=== PATIENT | female | born 1985 | race Caucasian/White ===

== ENCOUNTER 2017-05-10 07:28 | Emergency (ER) | payer BC ==
[2017-05-10] MEDS ORDERED: cefTRIAXone VIAL(*) 1,000 MG VIAL IM ONE (09:18)
[2017-05-10] MEDS ORDERED: Lidocaine 1%* 5 ML VIAL INJ ONE (09:35)
[2017-05-10] MEDS ORDERED: Lidocaine 1% MPF* 2 ML VIAL ONE (09:53)
[2017-05-10 10:25] VITALS: BP 113/65
--- NOTE | 2017-05-10 10:36 | RAD ---
Indication: Bit by dog at level of LEFT second metacarpal phalangeal joint. Small laceration and associated swelling. Comparison: No relevant prior exams available on the [facility] [place] [facility] for comparison. Technique: 3 views LEFT second finger. REPORT AND IMPRESSION: Mild soft tissue swelling most prominent over the dorsal aspect at the level of the metacarpal phalangeal joint. No subcutaneous emphysema, conspicuous foreign body, fracture, or malalignment.
[2017-05-10] MEDS ORDERED: Tetan/Diph/Pertus SYR(Tdap)* 0.5 ML SYR(BOOSTRIX) use SYR IM ONE (10:46)
--- NOTE | 2017-06-09 23:13 | UC ---
Felipe Vyas Aidan, scribed for Katrina Hodges DO on 05/10/17 at 0919 . Skin Complaint HPI - HPI Summary HPI Summary: 32 y/o female presents to the Urgent Care with a complaint acute, constant, mild -to-moderate left hand pain that resulted from her being bitten by her dog at 1900 last night. Her pain at baseline is 1-2/10, however, bending or applying pressure to the joint of the hand aggravates the pain to an 8-9/10. The pain is worst over the joint of the left index finger. Associated symptoms include a small puncture wound on the left hand, nausea and some swelling. She denies any other related symptoms. Pt is 14 weeks . This is her second . Hx of miscarriage. - History of Current Complaint Chief Complaint: UCSkin Time Seen by Provider: 05/10/17 07:57 Stated Complaint: DOG BITE Hx Obtained From: Patient Hx Last Menstrual Period: 08/05/16 ?: Yes Onset/Duration: Sudden Onset, Lasting Hours, Still Present Skin Exposure Onset/Duration: Hours Ago Timing: Constant Onset Severity: Moderate Current Severity: Moderate Pain Intensity: 2 - pain can be aggravated to 8/10 Pain Scale Used: 0-10 Numeric Location: Discrete - at left hand Aggravating: Other - bending the left hand, applying pressure to the joint of the left index finger. Alleviating: Other - unknown Associated Signs & Symptoms: Positive: Nausea, Joint Swelling. Negative: Negative - small puncture wound, left hand Related History: Possible Reaction to: Animal - animal bite - Allergy/Home Medications Allergies/Adverse Reactions: Allergies Allergy/AdvReac Type Severity Reaction Status Date / Time Penicillins Allergy Intermediate Rash Verified 11/16/16 09:40 Review of Systems Constitutional: Negative Skin: Other - puncture wound, left hand swelling Eyes: Negative ENT: Negative Respiratory: Negative Cardiovascular: Negative Gastrointestinal: Other - nausea Genitourinary: Negative Motor: Negative Neurovascular: Negative Musculoskeletal: Arthralgia - left hand pain Neurological: Negative Psychological: Negative All Other Systems Reviewed And Are Negative: Yes PMH/Surg Hx/FS Hx/Imm Hx - Surgical History Surgical History: Yes Surgery Procedure, Year, and Place: Left ACL repair - 2000. Right ACL repair, meniscus removal/repair - 2005. scope on left knee. right knee . exploratory scope of acl - Family History Known Family History: Positive: Hypertension - Social History Occupation: Employed Full-time Lives: With Family Alcohol Use: None Substance Use Type: None Smoking Status (MU): Never Smoked Tobacco Physical Exam Triage Information Reviewed: Yes Appearance: Well-Appearing, No Pain Distress, Well-Nourished Vital Signs: Initial Vital Signs Temp 97.8 F 05/10/17 07:30 Pulse 93 05/10/17 07:30 Resp 17 05/10/17 07:30 BP 117/84 05/10/17 07:30 Pulse Ox 100 05/10/17 07:30 Vital Signs Reviewed: Yes Eyes: Positive: Conjunctiva Clear. Negative: Discharge ENT: Positive: Hearing grossly normal. Negative: Muffled/hoarse voice Neck exam: Normal Neck: Positive: Supple Respiratory: Positive: Lungs clear, Normal breath sounds, No respiratory distress, No accessory muscle use Cardiovascular: Positive: RRR, No Murmur Musculoskeletal Exam: Normal Neurological: Positive: Alert, Muscle Tone Normal Psychological Exam: Normal Psychological: Positive: Age Appropriate Behavior Skin Exam: Other - warm, dry, normal color, Puncture wound over the dorsal aspect of the first metacarpal Diagnostics - Radiology FINGER X-RAY Xray Interpretation: No Acute Changes - IMPRESSION: Mild soft tissue swelling most prominent over the dorsal aspect at the level of the metacarpal phalangeal joint. No subcutaneous emphysema, conspicuous foreign body, fracture, or malalignment. Radiology Interpretation Completed By: Radiologist Course/Dx - Course Course Of Treatment: 32 y/o female presents with a puncture would to the left hand that resulted from a dog bite last night. There is associated swelling and pain that is aggravated by bending the index finger joint and by applying pressure to the puctured area. - Differential Diagnoses - Skin Complaint Differential Diagnoses: Abscess, Cellulitis - Diagnoses Provider Diagnoses: animal bite, wound infection Discharge - Discharge Plan Condition: Stable Disposition: HOME Prescriptions: Cephalexin CAP* [Keflex CAP*] 500 mg PO BID #20 cap Metronidazole [Flagyl 500 MG TAB] 500 mg PO TID #21 tab Patient Education Materials: Animal Bite (ED), Wound Infection (ED) Referrals: Iliana Valerio DO [Primary Care Provider] - If Needed Norbert Christie MD [Medical Doctor] - (FOLLOW UP 05/13/17) Additional Instructions: METRONIDAZOLE: Metronidazole (Flagyl) has been prescribed. This medication is used to kill a type of bacteria called anaerobes, and protozoan parasites such as trichomonas and Giardia. Flagyl often causes a metallic taste in the mouth and mild nausea. Do not use alcohol in any form with Flagyl (including alcohol in medication elixirs). Flagyl interacts with alcohol to cause flushing, palpitations, headache, stomach cramps, and vomiting. Do not use Flagyl if you are taking Antabuse (disulfiram). Call the doctor at once if you develop rash, shortness of breath, itching, or lightheadedness. Risk Factor B (show table) Implications Use of metronidazole during the first trimester of is contraindicated by the store stock associate for the treatment of trichomoniasis. Metronidazole crosses the placenta. Cleft lip with or without cleft palate has been reported following first trimester exposure to metronidazole; however, most studies have not shown an increased risk of congenital anomalies or other adverse events to the fetus following maternal use during . Because metronidazole was carcinogenic in some animal species, concern has been raised whether metronidazole should be used during . Available studies have not shown an increased risk of infant cancer following metronidazole exposure during ; however, the ability to detect a signal for this may have been limited. CEPHALEXIN: The antibiotic you've been prescribed is a member of the cephalosporin class. This type of antibiotic covers a wide variety of infections, including those of the skin, lungs, and urinary tract. It's useful for staph infections. This antibiotic is slightly similar to the penicillin family. In rare cases , a person who is allergic to penicillin will also be allergic to this medication. If you have had a severe allergic reaction to penicillin, and have not taken this antibiotic since that time, notify your doctor. Antibiotics which cover many germs ("broad spectrum" antibiotics) are more likely to cause diarrhea or "yeast" infections. Women prone to vaginal yeast problems may suffer an attack after taking this antibiotic. In infants, oral thrush (white spots "stuck" on the cheek) or yeast diaper rash may result. See your doctor if these problems occur. Call at once if you develop itching, hives , shortness of breath, or lightheadedness. Risk Factor B (show table) Implications Adverse events were not observed in animal reproduction studies. Cephalexin crosses the placenta and produces therapeutic concentrations in the circulation and amniotic fluid (Creatsas 1980). Peak concentrations in patients are similar to those in non patients. Prolonged labor may decrease oral absorption (Ally 1983; Tere 1972). ROCEPHIN: You have been given an injection of an antibiotic called Rocephin ( ceftriaxone). Sometimes the injection must be combined with antibiotic pills. For some infections, such as an uncomplicated ear infection, Rocephin provides all the antibiotic that's needed. The antibiotic will be in your body for about two days. For serious infections, we usually repeat doses of Rocephin daily. Side effects are very unusual following a shot. Women may develop vaginal yeast infections, and babies can get yeast (thrush) in the mouth following the use of antibiotics. Contact your physician if you have symptoms with this medication. Allergy to this antibiotic can result in hives, wheezing, faintness, or itching. If symptoms of allergy occur, call the doctor at once. Risk Factor B (show table) Implications Adverse events have not been observed in animal reproduction studies. Ceftriaxone crosses the placenta. was found to influence the single dose pharmacokinetics of ceftriaxone when administered prior to delivery ( Yane 2007). The pharmacokinetics of ceftriaxone following multiple doses in the third trimester are similar to those of non patients (Irving George 1993). Ceftriaxone is recommended for use in women for the treatment of gonococcal infections, Lyme disease, and may be used in certain situations prior to vaginal delivery in women at high risk for endocarditis ( consult current guidelines) (ACOG 120, 2011; CDC [Workowski 2015]; Yamileth 2006) . ANYTIME YOU TAKE AN ANTIBIOTIC, IT IS IMPORTANT TO REPLENISH THE BODY'D SUPPLY OF "GOOD BACTERIA." YOU CAN GET GOOD BACTERIA FROM HIGH QUALITY CULTURED FOODS SUCH LOCAL YOGURT, SOUR KRAUT, YESSICA RADHA, NATURALLY FERMENTED PICKLES AND PROBIOTIC DRINKS. YOU CAN ALSO GET GOOD BACTERIA FROM A PROBIOTIC SUPPLEMENT. The documentation as recorded by the Felipe casas Aidan accurately reflects the service I personally performed and the decisions made by me, Katrina Hodges DO.
== END 2017-05-10 11:02 | disposition home or self-care (01) ==
LOC: UCEAST 07:28
DX: O26.891 Other specified pregnancy related conditions, first trimester (principal); S61.432A Puncture wound without foreign body of left hand, initial encounter; L08.9 Local infection of the skin and subcutaneous tissue, unspecified; R11.0 Nausea; W54.0XXA Bitten by dog, initial encounter; Z3A.14 14 weeks gestation of pregnancy; Y93.9 Activity, unspecified; Y92.9 Unspecified place or not applicable; Z88.0 Allergy status to penicillin
CPT/HCPCS: 73140; 90715; 96372; 99212; G0463; J0696

== ENCOUNTER 2017-11-07 21:03 | Inpatient (IN) | payer BC ==
[2017-11-07] MEDS ORDERED: ceFAZolin 2 GM PREMIX (*) 2 GM/50 ML BAG IVPB ONE (21:19)
[2017-11-07 22:28] LABS: Hematocrit 36 % (35-47); Hemoglobin 12.1 g/dl (12.0-16.0); Mean Corpuscular HGB Conc 34 g/dl (31-36); Mean Corpuscular Hemoglobin 30 pg (27-31); Mean Corpuscular Volume 89 fL (80-97); Mean Platelet Volume 9 um3 (7.4-10.4); Red Blood Count 3.97 10^6/ul (4.0-5.4); Red Cell Distribution Width 13 % (10.5-15); White Blood Count 11.8 10^3/ul (3.5-10.8)
[2017-11-07] MEDS ORDERED: Famotidine IV * 20 MG in NS 0.9% 100 ML* 100 ML IVPB ONE (22:30)
[2017-11-07] MEDS ORDERED: OBEPIDURAL* 250 ML EPIDURAL ONE (23:21)
[2017-11-08] MEDS ORDERED: Sodium Citrate/Citric Acid* 15 ML UDC PO PRN (00:17)
[2017-11-08] MEDS ORDERED: EPHEDrine (Pressors)* 50 MG/ML VIAL IV PUSH PRN ×2 (00:17)
[2017-11-08] MEDS ORDERED: Famotidine TAB* 20 MG PO PRN (00:17)
[2017-11-08] MEDS ORDERED: Phenylephrine IV* 40 MCG/ML 10 ML SYRINGE IV PUSH PRN ×2 (00:17)
[2017-11-08] MEDS ORDERED: OBEPIDURAL* 250 ML EPIDURAL SCH (01:00)
[2017-11-08] MEDS ORDERED: ceFAZolin 1 GM VIAL(*) 1 GM in NS 0.9% 50 ML* 50 ML IVPB SCH (06:00)
[2017-11-08] MEDS ORDERED: ceFAZolin 1 GM VIAL(*) ONE (07:05)
[2017-11-08] MEDS ORDERED: Oxytocin in LR* 20 UNITS/1,000 ML BAG IVPB SCH ×2 (09:00→20:00)
[2017-11-08] MEDS: ceFAZolin 1 GM in Dextrose (*) 1 GM/50 ML BAG IVPB SCH ×2 (14:13→22:46)
[2017-11-08] MEDS ORDERED: Acetaminophen TAB* 325 MG PO PRN (19:47)
[2017-11-08] MEDS: Docusate CAP* 100 MG PO SCH (21:44)
[2017-11-08] MEDS: Ibuprofen TAB* 600 MG PO PRN (21:44)
[2017-11-08] MEDS ORDERED: Misoprostol TAB* 200 MCG ONE (21:56)
[2017-11-09] MEDS: Ibuprofen TAB* 600 MG PO PRN ×3 (05:02→18:01)
[2017-11-09] MEDS: Witch Hazel PAD* JAR TOPICAL PRN ×2 (05:02→21:42)
[2017-11-09] MEDS: Dibucaine 1% 28.35 GM TUBE PR PRN ×2 (05:03→21:42)
[2017-11-09] MEDS: Docusate CAP* 100 MG PO SCH ×3 (08:43→21:42)
[2017-11-09] MEDS ORDERED: Influenza VAC *QUAD* 2017-18* 0.5 ML SYRINGE IM ONE (09:00)
[2017-11-09] MEDS: Ferrous Gluconate TAB* 324 MG TAB PO SCH ×2 (09:12→21:42)
[2017-11-09 10:03] LABS: Hematocrit 28 % (35-47); Hemoglobin 9.5 g/dl (12.0-16.0); Mean Corpuscular HGB Conc 34 g/dl (31-36); Mean Corpuscular Hemoglobin 30 pg (27-31); Mean Corpuscular Volume 89 fL (80-97); Mean Platelet Volume 9 um3 (7.4-10.4); Red Blood Count 3.18 10^6/ul (4.0-5.4); Red Cell Distribution Width 13 % (10.5-15); White Blood Count 12.1 10^3/ul (3.5-10.8)
[2017-11-10] MEDS: Ibuprofen TAB* 600 MG PO PRN ×3 (00:36→14:56)
[2017-11-10 07:57] VITALS: BP 111/78
[2017-11-10] MEDS: Docusate CAP* 100 MG PO SCH ×2 (09:00→14:00)
[2017-11-10] MEDS: Ferrous Gluconate TAB* 324 MG TAB PO SCH (09:05)
[2017-11-10] MEDS: Witch Hazel PAD* JAR TOPICAL PRN (15:05)
[2017-11-10] MEDS: Dibucaine 1% 28.35 GM TUBE PR PRN (15:06)
== END 2017-11-10 15:15 | DRG 560 ==
LOC: MCHOBOUT 21:03 → MCHOB 21:19
PROVIDERS: ADMIT Midwife; ATTEND Midwife
PROC: 10E0XZZ Delivery of Products of Conception, External Approach (ICD-10-PCS; principal; 2017-11-08)
PROC: 10907ZC Drainage of Amniotic Fluid, Therapeutic from Products of Conception, Via Natural or Artificial Opening (ICD-10-PCS; 2017-11-08)
PROC: 0W8NXZZ Division of Female Perineum, External Approach (ICD-10-PCS; 2017-11-08)
DX: O99.824 Streptococcus B carrier state complicating childbirth (principal); O99.344 Other mental disorders complicating childbirth; D64.9 Anemia, unspecified; O90.81 Anemia of the puerperium; F41.8 Other specified anxiety disorders; Z3A.40 40 weeks gestation of pregnancy; Z37.0 Single live birth
CPT/HCPCS: 36415; 85025; 86850; 86900; 86901; A9270-GY; J0690

== ENCOUNTER 2019-08-23 09:46 | Inpatient (IN) | payer BC ==
[2019-08-23] MEDS ORDERED: Buffered Lidocaine 1% SYRIN* 1 ML/SYRINGE INTRADERM ONE (10:30)
[2019-08-23] MEDS ORDERED: Lactated Ringers 1000 ML Bag* 1,000 ML IV ONE ×2 (10:30→13:32)
[2019-08-23 11:21] LABS: Urine Benzodiazepine Screen None Detected (None Detect); Urine Opiates Screen None Detected (None Detect)
--- NOTE | 2019-08-23 12:15 | HP ---
General Information - Reason for Visit 34, , IUP@39+2 here in early labor - General Information Maternal Age: 34 Grav: 3 Para: 1 SAB: 1 IEA: 0 Estimated Due Date: 08/28/19 Determined By: LMP Gestational Age in Weeks/Days: 39+2 Maternal Blood Type and Rh: O Positive - Results this Serology/RPR Result: Non-Reactive Rubella Result: Immune HBsAg Result: Negative HIV Result: Negative GBS Culture Result: Negative Past Medical History Delivery History: Hx Complicated Vaginal Delivery - first complicated by midline episiotomy with second degree extension Past Medical History Comment: Asthma Depression/anxiety Past Surgical History Comment: Knee Arthroscopy (L 2000, 2010; R 2005) ACL repair (L 2000; R 2005) Repair of torn meniscus, right (2005) D&C (2015) Lamar tooth Family History Comment: Mother: asthma, high cholesterol, HTN, thyroid Sister: PCOS, thyroid disease PGM: breast cancer PGF: dementia MGM: ovarian cancer, RA MGF: [place] - Antepartal Records Antepartal Records: Reviewed, Uncomplicated Review of Systems Constitutional: Uncomfortable CV Complaint: No Respiratory: Shortness of Breath: No Gastrointestinal: No Nausea/Vomiting Genitourinary: No Dysuria, No Bleeding, No Leaking Fluid Musculoskeletal: Contractions Neurological: No Headache Movement: Normal Exam Allergies/Adverse Reactions: Allergies Penicillins Allergy (Intermediate, Verified 08/23/19 10:05) Hives 97.7, HR 103, RR 18, BP 126/80, 100% Lab Values - Entire Visit: Laboratory Tests 08/23/19 10:54 Urine Opiates Screen None detected Ur Barbiturates Screen None detected Ur Phencyclidine Scrn None detected Ur Amphetamines Screen None detected U Benzodiazepines Scrn None detected Urine Cocaine Screen None detected U Cannabinoids Screen None detected - Measurements Height: 5 ft 6 in Weight: 209 lb Weight in lbs: 209.058362 Body Mass Index (BMI): 33.7 Pre- Weight: 175 lb Weight Gained This : 34 lbs and 0 ozs - Exam Breast: Breast Exam Deferred CVA: No CVA Tenderness Extremities: No Edema Heart: Normal Rhythm/Heart Sounds HEENT: No Significant Findings Lungs: Clear Bilaterally Rectal: Rectal Exam Deferred Reflexes: DTR 2+ - Abdominal Exam Abdomen Exam: Non-Tender - Ultrasound/Biophysical Profile Ultrasound Status: Not Done Targeted Exam Findings Estimated Weight: 8lbs Cervical Exam: 4cm Effacement: 90% Station: -1 Presenting Part: Vertex Membrane Status: Bulging Bleeding/Discharge: None EFM Findings - External Monitor Findings Baseline Heart Rate: 145 External Monitor Findings: Accelerations Present, No Pattern of Variable or Late Decelerations, Variability Moderate External Monitor Findings Comment: No evidence of metabolic acidemia Contractions: Irregular Assessment/Plan - Assessment 34 yo, , IUP@39+2, here in early labor GBS negative, RI, O+, VSS No evidence of metabolic acidemia Irregular contractions, but cervical change from check in the office - Plan Plan: Admit - Anticipate Vaginal Delivery Plan Comment: Admit to L&D Encouraged various labor positions Recheck cervix in 2 hours. Will consider augmenting labor if no contractions and no cervical change at that time. Pt in agreement with plan. Anticipate progression to - Date/Time of Admission Date of Admission: 08/23/19 Time of Admission: 09:50
[2019-08-23] MEDS ORDERED: OBEPIDURAL* 250 ML EPIDURAL ONE (12:40)
[2019-08-23 12:51] LABS: ABS Basophils 0.1 10^3/ul (0-0.2); ABS Eosinophils 0.1 10^3/ul (0-0.6); ABS Lymphocytes 1.2 10^3/ul (1.0-4.8); ABS Monocytes 0.6 10^3/ul (0-0.8); ABS Neutrophils 8.5 10^3/ul (1.5-7.7); Hematocrit 37 % (35-47); Hemoglobin 12.6 g/dL (12.0-16.0); Lymphocyte % 11.6 %; Mean Corpuscular HGB Conc 34 g/dL (31-36); Mean Corpuscular Hemoglobin 30 pg (27-31); Mean Corpuscular Volume 88 fL (80-97); Mean Platelet Volume 9.3 fL (7.4-10.4); Platelet Count 208 10^3/uL (150-450); Red Blood Count 4.21 10^6 /uL (3.70-4.87); Red Cell Distribution Width 13 % (10-15); White Blood Count 10.5 10^3/uL (3.5-10.8)
[2019-08-23] MEDS: Lactated Ringers 1000 ML Bag* 1,000 ML IV SCH ×2 (13:17→16:24)
[2019-08-23] MEDS ORDERED: Phenylephrine 40 MCG/ML SYRINGE IV PUSH PRN ×2 (13:32)
[2019-08-23] MEDS ORDERED: Lactated Ringers 1000 ML Bag* 500 ML IV PRN ×2 (13:32)
[2019-08-23] MEDS ORDERED: Sodium Citrate/Citric Acid* 15 ML UDC PO PRN (13:32)
[2019-08-23] MEDS ORDERED: Famotidine TAB* 20 MG PO PRN (13:32)
[2019-08-23] MEDS ORDERED: Lactated Ringers 1000 ML Bag* 1,000 ML IV SCH ×3 (14:00→20:00)
[2019-08-23] MEDS ORDERED: OBEPIDURAL* 250 ML EPIDURAL SCH (14:00)
--- NOTE | 2019-08-23 14:17 | PN ---
Progress Note - Progress Note Date of Service: 08/23/19 Note: S: Pt is resting in bed. Comfortable with epidural. Not feeling contractions or pressure. O: VE: 5-6/100/-1 FHR: 135, moderate variability, +accels, no decels Contractions: 4-10. Palpate moderate A: IUP@40+5 in active labor no evidence of metabolic acidemia Irregular contractions, good resting tone. P: PARQ discussion about labor augmentation, Pitocin and AROM. Will start with Pitocin and then likely follow with AROM. Anticipate progression
[2019-08-23] MEDS ORDERED: Oxytocin in LR* 20 UNITS/1,000 ML BAG IVPB ONE (14:20)
[2019-08-23] MEDS ORDERED: Oxytocin in LR* 20 UNITS/1,000 ML BAG IVPB SCH (15:00)
--- NOTE | 2019-08-23 16:49 | PN ---
Progress Note - Progress Note Date of Service: 08/23/19 Note: S: Called by RN for suspected SROM. O: VE: deferred FHR: 135, moderate variability, +accels, occasional decels Contractions: 2-4. Palpate moderate Pitocin@8 A: IUP@40+5 in active labor SROM, grossly ruptured, clear fluid no evidence of metabolic acidemia Regular contractions, good resting tone. P: Anticipate progression
--- NOTE | 2019-08-23 17:28 | PN ---
Progress Note - Progress Note Date of Service: 08/23/19 Note: S: Resting in bed. Reports more feeling in legs and feeling contractions. Tolerable. O: VE: 8cm/100/0, forebag felt FHR: 135, moderate variability, +accels, occasional decels Contractions: 2-4. Palpate moderate Pitocin@8 A: IUP@40+5 in active labor Forebag ruptured, blood tinged fluid no evidence of metabolic acidemia Regular contractions, good resting tone. P: Anticipate progression
[2019-08-23] MEDS ORDERED: Dibucaine 1% 28.35 GM TUBE PR PRN (19:14)
[2019-08-23] MEDS ORDERED: Glycerin ADULT SUPP PR PRN (19:14)
[2019-08-23] MEDS ORDERED: Acetaminophen TAB* 325 MG PO PRN (19:14)
[2019-08-23] MEDS ORDERED: Witch Hazel PAD* JAR TOPICAL PRN (19:14)
--- NOTE | 2019-08-23 19:58 | PROCNOTE ---
[facility] OB: Delivery Note - Delivery A Date of : 08/23/19 Time of : 18:33 [place] Sex: Female Weight at : 8 lb 11 oz Score 1 Minute: 9 Score 5 Minutes: 9 Gestational Age in Weeks and Days at Delivery: 39 Weeks and 2 Days Delivery Method: Spontaneous Vaginal Labor: Spontaneous Did Patient attempt ?: N/A, No Previous Amniotic Fluid: Clear Estimated Blood Loss: 300 Anesthesia/Analgesia: CEI for Labor Delivered By: Birgit Strickland Nursery Level of Nursery: Regular/Bedside - Perineum Perineal Injury: 1st Degree Perineal Injury Comment: repaired in the usual fashion with CEI infusing and under local anesthesia Perineal Repair: By Delivering Practioner - Events Delivery Events of Note: Pitocin During Labor - Additional Delivery Notes Additional Delivery Notes: G3, now P2 at 39+2 weeks admitted in labor. At 6cm, pt requested an epidural. With CEI infusing, following SROM, pt progressed to complete and complete. She began spontaneously pushing at 1825 with good maternal effort. Slow controlled delivery of infant head OA to BRITTANI at 1833. Shoulders followed with next push, and infant passed to maternal abdomen. Spontaneous cry, HR > 110. Apgars 9 and 9. Cord doubly clamped and cut by infant's father once pulsations ceased, at least 3 minutes. Placenta delivered spontaneous and herb at 1840. Fundus firm with massage. Perineum and vagina carefully inspected, 1st degree perineal laceration repaired under local anesthetic. Female , mother and baby stable at time of note. EBL = 300mL
[2019-08-23] MEDS ORDERED: Simethicone TAB* 80 MG TAB.CHEW PO SCH (21:00)
[2019-08-23] MEDS: Docusate CAP* 100 MG PO SCH (22:43)
[2019-08-23] MEDS: Ibuprofen TAB* 600 MG PO SCH (22:43)
[2019-08-24 06:51] LABS: ABS Eosinophils 0.1 10^3/ul (0-0.6); ABS Lymphocytes 1.3 10^3/ul (1.0-4.8); ABS Monocytes 0.7 10^3/ul (0-0.8); Eosinophil % 1.3 %; Hematocrit 31 % (35-47); Hemoglobin 10.9 g/dL (12.0-16.0); Lymphocyte % 15.7 %; Mean Corpuscular HGB Conc 35 g/dL (31-36); Mean Corpuscular Hemoglobin 31 pg (27-31); Mean Corpuscular Volume 88 fL (80-97); Mean Platelet Volume 8.8 fL (7.4-10.4); Platelet Count 155 10^3/uL (150-450); Red Cell Distribution Width 13 % (10-15); White Blood Count 8.1 10^3/uL (3.5-10.8)
[2019-08-24] MEDS: Docusate CAP* 100 MG PO SCH ×2 (08:20→14:57)
[2019-08-24] MEDS: Ibuprofen TAB* 600 MG PO SCH ×3 (08:20→21:24)
[2019-08-24] MEDS ORDERED: Ferrous Gluconate TAB* 324 MG TAB PO SCH (09:00)
[2019-08-25] MEDS: Docusate CAP* 100 MG PO SCH ×2 (00:17→08:55)
[2019-08-25] MEDS: Ibuprofen TAB* 600 MG PO SCH ×2 (05:49→06:07)
[2019-08-25 08:11] VITALS: BP 108/79
== END 2019-08-25 15:50 | disposition home or self-care (01) | DRG 560 ==
LOC: MCHOBOUT 09:46 → MCHOB 10:31
PROVIDERS: ADMIT Advanced Practice Midwife; ATTEND Advanced Practice Midwife
PROC: 10E0XZZ Delivery of Products of Conception, External Approach (ICD-10-PCS; principal; 2019-08-23)
PROC: 10907ZC Drainage of Amniotic Fluid, Therapeutic from Products of Conception, Via Natural or Artificial Opening (ICD-10-PCS; 2019-08-23)
PROC: 4A1HXCZ Monitoring of Products of Conception, Cardiac Rate, External Approach (ICD-10-PCS; 2019-08-23)
PROC: 0HQ9XZZ Repair Perineum Skin, External Approach (ICD-10-PCS; 2019-08-23)
DX: O99.52 Diseases of the respiratory system complicating childbirth (principal); Z37.0 Single live birth; J45.909 Unspecified asthma, uncomplicated; O70.0 First degree perineal laceration during delivery; O87.2 Hemorrhoids in the puerperium; O76 Abnormality in fetal heart rate and rhythm complicating labor and delivery; Z3A.39 39 weeks gestation of pregnancy; Z88.0 Allergy status to penicillin
CPT/HCPCS: 36415; 80307; 85025; 86850; 86900; 86901; A9270-GY

== ENCOUNTER → 2019-09-03 12:08 | Day surgery (SDC) | payer BC ==
[~2019-09-03 12:08] MED LIST: Chloroprocaine 2%* 20 ML VIAL ONE; Ketorolac INJ* 30 MG/ML 1 ML VIAL IV PRN; Midazolam* 1 MG/ML 5 ML VIAL (5 MG) ONE; Misoprostol TAB* 200 MCG ONE; Naloxone* 0.4 MG/ML 1 ML VIAL IV PRN; OXYTOCIN* 10 UNITS/ML 1 ML VIAL ONE; Ondansetron INJ* 2 MG/ML VIAL IV PRN; ceFOXitin 2 GM IVPREMIX* 2 GM/50 ML BAG ONE; fentaNYL* 50 MCG/ML 2 ML VIAL (100 MCG VIAL) IV PRN
[2019-09-03 16:48] VITALS: BP 119/79
--- NOTE | 2019-09-03 23:41 | OP ---
OPERATIVE REPORT: DATE OF OPERATION: 09/03/19 DATE OF : 85 SURGEON: Dr. Robert. ANESTHESIA: Spinal with sedation. PRE-OP DIAGNOSES: hemorrhage and retained products of conception. POST-OP DIAGNOSES: hemorrhage and retained products of conception. OPERATIVE PROCEDURE: D and C. ESTIMATED BLOOD LOSS: 150 cc. COMPLICATIONS: None. FINDINGS: On exam under anesthesia, uterus was 14-week size. Cervix, vagina, vulva appeared normal. On curettage, there was a moderate amount of old clot and small amounts/flecks of decidua or placen jeffrey tissue consistent with possible retained products of conception. No large piece of placenta was obtained. DESCRIPTION OF PROCEDURE: The patient was identified and procedure identified as a D and C. The pat ient was taken to the operating room, prepped and draped in the usual fashion in the dorsal lithotomy position under spinal anesthesia. The patient received a preoperative dose of cefoxitin. The cervi x was grasped with 2 single-tooth tenaculums. Cervix was already dilated up to a #36 Perez dilator, the #12 suction curette was inserted and suction curettage performed. The sharp curette was inserted with small amounts of tissue obtained, mostly from the back wall. Care was taken not to perforate, but the fundus was reached during the procedure. Suction curettage was performed until no more tissu e was obtained, and no more tissue was obtained using the sharp curette. A small amount of bleeding was noted at the end of the procedure. Both tenaculums removed and good hemostasis was verified, and the patient returned to the recovery room in stable condition after a dose of Cytotec. [id number]/[facility] #: [id number]
== END | disposition home or self-care (01) ==
LOC: OR 12:08
PROVIDERS: ATTEND Obstetrics & Gynecology
DX: O72.2 Delayed and secondary postpartum hemorrhage (principal); Z88.0 Allergy status to penicillin; J45.909 Unspecified asthma, uncomplicated; F41.8 Other specified anxiety disorders
CPT/HCPCS: 88305; A9270-GY; J0694; J2250; J2400; J2590